=== PATIENT | female | born 1995 | race Caucasian/White ===

== ENCOUNTER 2023-10-16 16:51 | Emergency (ER) | payer BC, SELFPAY ==
[2023-10-16 17:08] VITALS: BP 122/83; PULSE 75; RESP 16; TEMP 36.6; O2SAT 100
[2023-10-16 17:20] VITALS: PULSE 119
--- NOTE | 2023-10-16 17:23 | ED.GENADULT ---
HPI - General Adult General Chief complaint: Arrhythmia/Palpitations Stated complaint: back pain/racing heart Time Seen by Provider: 10/16/23 17:15 Source: patient Mode of arrival: ambulatory Limitations: no limitations History of Present Illness HPI narrative: 27 year old female who presents to [facility] care with complaints of having right flank pain starting about 3 weeks ago. Patient reports today she started having headache and some nausea and around 1100 she started having some palpitations. 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 MD complaint: right flank pain and today headache some nausea and palpitations Onset (ago): week(s) (3 weeks flank pain, today other symptoms.) Severity scale (1-10): 4 Treatments prior to arrival: other (patient reports recent Ketamine infusion) Related Data Allergies Allergy/AdvReac Type Severity Reaction Status Date / Time No Known Allergies Allergy Verified 10/16/23 17:39 Review of Systems Review of Systems: CONSTITUTIONAL: Denies fever, chills, or sweats. EYES: Denies visual changes, redness, or discharge. ENT: Denies rhinorrhea, congestion, sore throat, or otalgia. CARDIOVASCULAR: Denies chest pain,positive for palpitations, no edema. RESPIRATORY: Denies cough or dyspnea. GASTROINTESTINAL: Denies abdominal pain reports nausea,no vomiting, or diarrhea. GENITOURINARY: Denies dysuria or hematuria, reports right flank pain SKIN: Denies rash or itching. MUSCULOSKELETAL: Denies back pain, joint pain, or myalgia. NEUROLOGIC: Denies headache, numbness, or weakness. PSYCHIATRIC: Report history of anxiety or depression, PTSD. 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 There is no relevant family history pertinent to the presenting complaint Exam Narrative: GENERAL: Well-appearing, well-nourished, and in no acute distress. HEAD: Normocephalic, atraumatic. EYES: PERRLA and EOMI. ENT: Nares clear, no rhinorrhea or epistaxis. Mucous membranes moist.TM's normal, throat pink with no swelling NECK: Supple.no lymphadenopathy CHEST: Clear to auscultation. No respiratory distress.SAO2 100% on room air HEART: Regular to tachy rate and rhythm. No murmur heard. Normal peripheral pulses. ABDOMEN: Soft, nontender, nondistended, normal active bowel sounds.reports right flank pain without radiation, no suprapubic pain EXTREMITIES: Normal range of motion. No edema. SKIN: Warm, dry, no rash. NEURO: No focal deficits. Alert and oriented x3. Course Course Emergency Course: Patient is aware of diagnosis, understands and agrees to treatment plan.? Anticipatory guidance given.? Patient agrees to follow-up as directed and is aware of reasons to seek care at the emergency department. Portions of this record may have been created with voice recognition software Level of Care: Express Care Visit Vital Signs Vital signs: Vital Signs Temperature 36.6 C 10/16/23 17:08 Pulse Rate 75 10/16/23 17:08 R
--- NOTE | 2023-10-16 17:25 | ECG_ITS ---
Test Date: 2023-10-16 17:29:44 Measurements Intervals Carbon Rate: 102 P: 27 CA: 112 QRS: 78 QRSD: 90 T: 45 QT: 360 QTc: 471 Interpretive Statements SINUS TACHYCARDIA No previous ECG available for comparison Electronically Signed On 10-17-2023 11:48:27 CDT by Reema Ye M.D.
== END 2023-10-16 18:33 | disposition home or self-care (01) ==
PROVIDERS: Emergency Provider Registered Nurse
DX: R39.89 Other symptoms and signs involving the genitourinary system (principal); M54.9 Dorsalgia, unspecified; I45.6 Pre-excitation syndrome; Z95.810 Presence of automatic (implantable) cardiac defibrillator
CPT/HCPCS: 81003; 87086; 93005; 99213; G0463